=== PATIENT | male | born 1950 | race Caucasian/White ===

== ENCOUNTER 2016-09-09 09:37 | Inpatient (IN) | payer OTHER, MEDICARE ==
--- NOTE | 2016-09-04 11:07 | GHP ---
[f rep st] PREOP HISTORY AND PHYSICAL DATE OF ADMISSION: 09/09/2016 PROBLEM: Severe left hip degenerative arthritis. HISTORY OF PRESENT ILLNESS: The patient is a 66-year-old male who will be admitted for a left total hip arthroplasty with Dr. Warner at the [facility] on September 09, 2016. The patient st ates that for the past year or 2, he has had worsening debilitating pain of the left hip. His activ ities have become significantly limited, and he cannot hike any longer or ride a bike any longer bec ause of pain. He uses Aleve with minimal improvement in his hip pain. He uses walking sticks for a mbulation. He has difficulties putting on his shoes and socks on the left side. He has done some p hysical therapy exercises on his own but no previous history of surgery or cortisone injections for the left hip. Because of his recalcitrant response to conservative therapies, he has elected to pro ceed with a left total hip arthroplasty. PAST MEDICAL HISTORY: Pertinent for hypercholesterolemia. No history of DVT, PE, CAD, or MRSA infe ction. No history of hepatitis. CURRENT MEDICATIONS: Multivitamin; vitamins D, E; saw palmetto; and Aleve PM. MEDICATION ALLERGIES: Amoxicillin, which causes generalized itching and hives. No anaphylaxis. SOCIAL HISTORY: Patient is . He is retired. He is a former smoker and quit 2 years ago. Nancy virk has moderate alcohol and caffeine intake. His activities include walking, golfing, and fishing. FAMILY HISTORY: Pertinent for coronary artery disease. PAST SURGICAL HISTORY: Right hip resurfacing arthroplasty in 2009. PHYSICAL EXAMINATION: GENERAL: He is an otherwise healthy-appearing 66-year-old male. VITALS: He ight 5 feet 9 inches tall, weight 178 pounds, BMI 26.3. HEENT: Head: Normocephalic, atraumatic. Eyes are PERRLA. Conjunctivae and sclerae are clear. Mouth: He has good oral hygiene without any loose teeth. LUNGS: Clear. HEART: Regular rate and rhythm without murmurs, gallops, or rubs. EX TREMITIES: Pertinent findings are limited to the patient's left hip. He has full hip extension, 60 degrees of flexion with a 20-degree external rotation flexion contracture, 0 degrees of internal ro tation, and 10-15 degrees of abduction. DIAGNOSTIC IMAGING: Recent x-rays taken of the patient's left hip show severe degenerative arthriti s with ufae-di-hjfy findings at the weightbearing aspect of the hip. He has an eroded and flattened femoral head along with degenerative cysts of the acetabulum and femoral head. There was no eviden ce of AVN. IMPRESSION ON ADMISSION: 1. Severe left hip degenerative arthritis. 2. Hypercholesterolemia. PLAN: The plan will be for the patient to undergo a left total hip arthroplasty with Dr. Warner at the [facility] on Friday, September 09, 2016. The surgery has been described to the pa tiecindy including the risks, benefits, and expectations. He understands the risk of sciatic nerve inj ury, infection, or hip dislocation. He understands the relationship between leg length and stabilit y of the hip. He also understands the importance of postoperative physical therapy. All his questi ons have been answered, and he consents to surgery here in the office today. Copy requested to: Dr. Poli Nunes, [place] /[id number]/DELBERTL
[~2016-09-09 09:37] MED LIST: ACETAMINOPHEN 325 MG TAB PO ONE; CHLORHEXIDINE GLUC HIBICLENS 118 ML BTL TP ONE; DEXAMETHASONE 4 MG/ML VIAL IVP ONE; FAMOTIDINE 20 MG TAB PO ONE; NS IV ONE; POVIDONE-IODINE 20 ML in SODIUM CL IRRIG SOLUTION 500 ML IRR ONE; ROPI/epiNEPH/KETOROLAC JOINT COCKTAIL IU ONE; TRANEXAMIC ACID IV ONE
[2016-09-09] MEDS ORDERED: LIDOCAINE 1% 2 ML INJ ONE (09:51)
[2016-09-09] MEDS ORDERED: ACETAMINOPHEN 325 MG TAB ONE (09:52)
[2016-09-09] MEDS ORDERED: FAMOTIDINE 20 MG TAB ONE (09:52)
[2016-09-09] MEDS ORDERED: DEXAMETHASONE 4 MG/ML VIAL ONE (09:52)
[2016-09-09] MEDS ORDERED: ceFAZolin 1 GM/5 ML SYR ONE (10:31)
[2016-09-09] MEDS ORDERED: ceFAZolin 2 GM/DEXTROSE 100 ML IV ONE (11:00)
[2016-09-09] MEDS ORDERED: LR 1,000 ML IV ONE (11:03)
[2016-09-09] MEDS ORDERED: LIDOCAINE 1% 5 ML SDV ID PRN (11:03)
[2016-09-09] MEDS ORDERED: MIDAZOLAM 2 MG/2 ML VIAL ONE (11:29)
[2016-09-09] MEDS ORDERED: PROPOFOL/EMULSION 500 MG/50 ML BOTTLE IV ONE (11:56)
[2016-09-09] MEDS ORDERED: PHENYLEPHRINE HCL 100 MCG/ML SYR ONE (12:05)
[2016-09-09] MEDS ORDERED: epHEDrine SULFATE 10 MG/ML SYR ONE (12:34)
[2016-09-09] MEDS ORDERED: PROPOFOL 200 MG/20 ML VIAL ONE (13:07)
--- NOTE | 2016-09-09 13:25 | POSTOPPROG ---
Post Op Note Date of Operation: 09/09/16 Surgeon: George Warner Diabetes Physician: Evelia Anesthesiologist: Kellen Anesthesia: IV Sedation, Spinal Post-op Diagnosis: L hip arthritis Procedure: L RANDEE Inf/Abcess present in the surg proc area at time of surgery?: No EBL: 100-500
[2016-09-09] MEDS ORDERED: diphenhydrAMINE 25 MG CAP PO PRN (13:31)
[2016-09-09] MEDS ORDERED: MAGNESIUM HYDROXIDE 30 ML UDCUP PO PRN (13:31)
[2016-09-09] MEDS ORDERED: PROMETHAZINE HCL 25 MG SUPPR PR PRN (13:31)
[2016-09-09] MEDS ORDERED: oxyCODONE IR 5 MG TAB PO PRN (13:31)
[2016-09-09] MEDS ORDERED: TEMAZEPAM 15 MG CAP PO PRN (13:31)
[2016-09-09] MEDS ORDERED: NS 500 ML IV PRN (13:31)
[2016-09-09] MEDS ORDERED: PHARMACY PAIN CONSULT 1 EA MISC PRN (13:31)
[2016-09-09] MEDS ORDERED: METOCLOPRAMIDE 10 MG/2 ML VIAL IVP PRN (13:31)
[2016-09-09] MEDS ORDERED: POLYETHYLENE GLYCOL 3350 17 GM PKT PO PRN (13:31)
[2016-09-09] MEDS ORDERED: BISACODYL 10 MG SUPP PR PRN (13:31)
[2016-09-09] MEDS ORDERED: KETOROLAC 30 MG/1 ML SDV IVP PRN (13:31)
[2016-09-09] MEDS ORDERED: PROMETHAZINE HCL 25 MG/ML INJ IVP PRN (13:31)
[2016-09-09] MEDS ORDERED: ONDANSETRON 4 MG/2 ML VIAL IVP PRN (13:31)
[2016-09-09] MEDS ORDERED: LACTULOSE 20 GM/30 ML UDCUP PO PRN (13:31)
[2016-09-09] MEDS ORDERED: traMADol 50 MG TAB PO PRN (13:31)
[2016-09-09] MEDS ORDERED: ONDANSETRON DISINTEGRATING 4 MG TAB PO PRN (13:31)
[2016-09-09] MEDS ORDERED: DIPHENOXYLATE/ATROPINE LOMOTIL 1 TAB PO PRN (13:31)
[2016-09-09] MEDS ORDERED: CYCLOBENZAPRINE 10 MG TAB PO PRN (13:31)
[2016-09-09] MEDS ORDERED: LR 1,000 ML IV SCH (14:00)
--- NOTE | 2016-09-09 14:29 | GOP ---
[f rep st] OPERATIVE REPORT DATE OF OPERATION: 09/09/2016 SURGEON: George Warner MD DRY BOSS: Sami Awda PA-C and Marcelo Quinn CFA. ANESTHESIA: A combination of Marcaine, spinal and IV sedation by Dave Foreman MD. PREOPERATIVE DIAGNOSIS: Left hip severe degenerative arthritis. POSTOPERATIVE DIAGNOSIS: Left hip severe degenerative arthritis. PROCEDURE PERFORMED: A left total hip arthroplasty, ceramic femoral head on highly cross-linked nancy yethylene cup liner. FINDINGS: DESCRIPTION OF PROCEDURE: The patient was given 2 g of preoperative IV Ancef within 60 minutes of s urgery. He also received IV tranexamic acid at a dose of 20 mg/kg. He was placed on the operating room table and given spinal anesthesia with Marcaine by Dr. Foreman. He was then placed supine and gi mayela IV sedation. A Arrieta catheter was not used. He wore a SABRINA stocking and SCD on the nonoperative leg. He was rolled to the right lateral decubitus position. The position was secured with the peg board table attachment. An axillary roll was used, and all pressure points were carefully padded. I was careful to lock his pelvis in a rigid vertical position. His perineum was isolated with plast ic adhesive drapes. The left hip and left lower extremity were prepped with ChloraPrep. They were draped free using sterile sheets, stockinette, and Ioban plastic drape. The World [employer] Organization time-out was performed to verify the correct surgical side and the cor rect patient identity. The [place] time-out was also performed. I made a 5-inch straight, oblique posterolateral hip skin incision. Subcutaneous tissues were sharp ly divided, and hemostasis was obtained using electrocautery. I was using a modified direct superio r approach. I only minimally entered the fascia andree. Primarily I split the fascia of the gluteus kenn and bluntly split the muscle fibers in line with their orientation. A Charnley self-retaini ng retractor was inserted. His sciatic nerve was located, partially exposed and protected throughou t the procedure. The external rotators, and the posterior hip capsule were divided as separate laye rs at the base of the femoral neck, tagged and reflected posteriorly. A smooth 8-inch Steinmann pin was inserted vertically into the ilium superior to the acetabulum. An 8-inch drill bit was inserte d vertically into the greater trochanter and parallel to the first pin. The distance between the 2 was measured for leg length reference. His femoral head was dislocated posteriorly. Severe degener ative changes were present on the femoral head. The femoral neck was osteotomized at the appropriat e level and inclination. I was careful to preserve all the posterior capsule and most of the anterior capsule. The remnant o f his damaged labrum was excised. The femur was prepared first. This allowed me to overhead crane operator the amount of natural femoral neck anteversi on. This, in turn, allowed me to later determine the correct amount of cup anteversion. He had markus roximately 10 degrees of natural femoral neck anteversion. The canal was opened first with the box chisel laterally. I then entered the canal with the starter reamer by hand. I then hand broached u p to a size 4. I was using a Zarina Accolade II stem. I was careful to lateralize adequately. Appropriate retractors were inserted to expose the acetabulum. The acetabulum was reamed sequential ly up to 55 mm. He had a 1 cm cyst in the superior acetabulum. This was curetted down to healthy b one. I created a slurry of bone graft by reaming the cut neck portion of the removed femoral head. I packed the bone graft into the cyst. I then selected the size 56 mm Richards Tritanium solid-back ed hemispherical shell. This was tapped securely into place in the proper degree of inclination and anteversion. I used the transverse acetabular ligament and other acetabular bony landmarks to help me properly orient the cup. I inserted a screw-in metal dome hole plug. I performed a series of trial reductions to determine length and stability. I took a cross-table in traoperative AP pelvis x-ray. The position of the cup was good. I thought the stem was undersized slightly. The leg lengths were good. I then went back and did some additional hand broaching and i nserted a #5 broach. I took another cross-table intraoperative AP pelvis x-ray. It confirmed prope r sizing of the broach and proper leg length. The flush Richards X3 highly cross-linked polyethylene liner was then inserted and tapped securely in to place. I inserted a screw-in metal dome hole plug prior to insertion of the plastic liner. I se lected the Richards Accolade II stem and a size 5 with high offset. This was inserted press-fit and was a good tight fit. I did one final trial reduction and confirmed that the 0 neck length, with th e 36 mm head was the proper combination. I selected the Zarina Biolox Delta ceramic head with an o utside diameter of 36 mm and a neck length of 0 mm. This was tapped securely onto the clean trunnio n. The acetabulum was irrigated, cleaned, and the hip was reduced 1 final time. He had excellent a nterior and posterior stability and appropriate length. 40 mL the joint anesthetic cocktail were injected into the capsule, the deep musculature and the sub cutaneous tissues along the skin edges. The joint was thoroughly irrigated 1 final time with a dilu te Betadine solution. The sciatic nerve was reinspected and looked unharmed. The external rotators and the posterior hip capsule were repaired in separate layers with #[address] ill holes in the greater trochanter. This provided a strong posterior capsular and external rotator repair. The fascia andree was repaired first with several interrupted [id number] #2 FiberWire s utures, followed by a running #2 barbed Ethicon StrataFix PDO suture. The subcutaneous tissues were closed with a running 0 barbed Ethicon StrataFix Monoderm suture. The skin was closed with a runni ng 3-0 barbed Ethicon StrataFix Monoderm subcuticular suture. The skin edges were reapproximated an d sealed with Dermabond glue. The wound was covered with a strip of Telfa, and everything was held in place with a piece of clear plastic Tegaderm. A long-leg SABRINA stocking and SCDs were applied to his left lower extremity. He wore a stocking and S CD on the opposite leg during the procedure. An abduction pillow was placed between his knees. He was awakened from anesthesia and rolled to the supine position on his [facility]. He was taken to PACU in satisfactory condition. There were no recognized intraoperative complications. The estimated blood loss was about 400 mL. The sponge and needle count were correct on 2 occasions. I used a Zarina Tritanium hemispherical press-fit solid-backed acetabular shell with an outside jacky meter of 56 mm. The liner was a Richards X3 0-degree, highly cross-linked liner with an inside diame ter 36 mm. The femoral component was a Richards high offset Accolade II stem and a size 5 and press- fit. The femoral head was a Richards Biolox Delta ceramic head with a 0 neck length and a 36 mm outs shanika diameter. Gildardo Awad and Marcelo Quinn acted as surgical assistants. Their assistance was a medical perez staley. Copy requested to: Dr. Poli Renee Collins, [place] /[id number]/[facility]
[2016-09-09] MEDS: ACETAMINOPHEN 325 MG TAB PO SCH ×2 (18:30→23:30)
[2016-09-09] MEDS: TRANEXAMIC ACID 650 MG TAB PO SCH (20:32)
[2016-09-09] MEDS: ceFAZolin 2 GM/DEXTROSE 100 ML IV SCH (20:32)
[2016-09-09] MEDS: SENNOSIDES/DOCUSATE SODIUM TAB PO SCH (20:32)
[2016-09-09] MEDS: ASPIRIN 325 MG TAB PO SCH (20:32)
[2016-09-09] MEDS: FAMOTIDINE 20 MG TAB PO SCH (20:32)
[2016-09-10] MEDS: ACETAMINOPHEN 325 MG TAB PO SCH (04:52)
[2016-09-10] MEDS: TRANEXAMIC ACID 650 MG TAB PO SCH (04:52)
[2016-09-10] MEDS: ceFAZolin 2 GM/DEXTROSE 100 ML IV SCH (04:53)
[2016-09-10 05:21] LABS: HEMATOCRIT 42.5 % (40.0-51.0)
--- NOTE | 2016-09-10 07:27 | SOAPPROG ---
SOAP Progress Note Assessment/Plan: Assessment: Afebrile. Mild pain. Needed str cath x 2. Voiding spont now. Dsg is dry. H/H is good. Sciatic nerve intact. Films look good. Plan: Up with PT today. DC later today. 09/10/16 07:26 Objective: Vital Signs Temp Pulse Resp BP Pulse Ox 37.1 C 87 16 138/79 H 90 L 09/10/16 04:00 09/10/16 04:00 09/10/16 04:00 09/10/16 04:00 09/10/16 04:00 Laboratory Results 09/10/16 04:49 09/09/16 09/10/16 09/11/16 05:59 05:59 05:59 Intake Total 4194 Output Total 3190 Balance 1644 ICD10 Worksheet Patient Problems: Problems Problem Status Onset Osteoarthritis of left hip Acute
[2016-09-10 07:51] VITALS: BP 137/76; PULSE 84; RESP 18; TEMP 97.7; O2SAT 92
--- NOTE | 2016-09-10 08:42 | GDS ---
[f rep st] DISCHARGE SUMMARY ADMISSION DIAGNOSIS: Left hip severe degenerative arthritis. DISCHARGE DIAGNOSIS: Left hip severe degenerative arthritis. OPERATION PERFORMED: 09/09/2016, a left total hip arthroplasty, ceramic femoral head on highly cros s-linked polyethylene cup liner. POSTOPERATIVE COMPLICATIONS: None. CONDITION ON DISCHARGE: Improved. DESCRIPTION OF HOSPITAL COURSE: The patient was admitted to the hospital the morning of surgery. H is admission hemoglobin and hematocrit were 17.7 and 51.2. The same day, under a combination of Mar edwin spinal and IV sedation, he underwent a left total hip arthroplasty. Postoperatively, he was t reated with multimodal DVT prophylaxis, including aspirin and early mobilization. On the first post operative day, his hemoglobin and hematocrit were 15.0 and 42.5. He was seen by Physical Therapy, a nd made excellent progress with ambulation and stairs. Postoperatively, he required straight urinar y catheterization on 2 occasions. After that, he was able to void spontaneously. By the time of peng amor, he was afebrile, his wound was clean and dry, and he was walking independently. DISPOSITION: The patient is discharged to his home. He lives in [place]. He will have outpatient physical therapy in [place]. He may progress to full weight bearing on the left as tolerated. Us e SABRINA stockings for 1 week. Use an abduction pillow in bed for 3 weeks. Continue aspirin 325 mg p. o. daily for 21 days. He has prescriptions for oxycodone and tramadol, for pain control. I will se e him back in the office on 09/28/2016. If any problems, he is to call me at the office. Copy requested to: Dr. Brooklyn Nunes /[id number]/MODL
[2016-09-10] MEDS ORDERED: Herbals/Supplements -Info Only PO SCH (09:00)
[2016-09-10] MEDS ORDERED: MULTIVITAMINS 1 EACH TAB PO SCH (09:00)
[2016-09-10] MEDS: ASPIRIN 325 MG TAB PO SCH (09:17)
[2016-09-10] MEDS: SENNOSIDES/DOCUSATE SODIUM TAB PO SCH (09:17)
[2016-09-10] MEDS: FAMOTIDINE 20 MG TAB PO SCH (09:17)
== END 2016-09-10 10:45 | disposition home or self-care (01) | DRG 470 ==
LOC: F3E 09:37 → F3N 16:25
PROVIDERS: ADMIT Orthopaedic Surgery; ATTEND Orthopaedic Surgery
PROC: 0SRB04Z Replacement of Left Hip Joint with Ceramic on Polyethylene Synthetic Substitute, Open Approach (ICD-10-PCS; principal; 2016-09-09 11:45)
DX: M16.12 Unilateral primary osteoarthritis, left hip (principal); E78.00 Pure hypercholesterolemia, unspecified
CPT/HCPCS: 97161-GP; 97165-GO; G8978-GP-CI; G8979-GP-CI; G8980-GP-CI; G8987-GO-CI; G8988-GO-CI; G8989-GO-CI; J0171; J0690; J1100; J1885; J2250; J2370; J2704; J2795